=== PATIENT | female | born 1985 | race Caucasian/White ===

== ENCOUNTER 2017-09-13 10:38 | Emergency (ER) | payer OTHER ==
[2017-09-13 11:31] VITALS: BMI 24.1
[2017-09-13 11:40] VITALS: RESP 18; TEMP 98.2
--- NOTE | 2017-09-13 12:17 | ED PDOC ---
Arrival/HPI - General Chief Complaint: Abnormal Skin Integrity Time Seen by Provider: 09/13/17 11:32 Historian: Patient - History of Present Illness Narrative History of Present Illness (Text): 09/13/17 12:14 Dustin Flores is a 31 year old female, 5 months , who presents to the emergency department complaining of worsening pain to her right axilla for a few days. Patient indicates that pain worsens on palpation. Patient denies any fever, chills, chest pain, shortness of breath, nausea, vomiting, diarrhea, urinary symptoms, back pain, neck pain, headache, dizziness, trauma/injury, suicidal/homicidal ideation or any other complaints. Time/Duration: < week Symptom Onset: Gradual Symptom Course: Worsening Activities at Onset: Rest Context: Home Past Medical History - Provider Review Nursing Documentation Reviewed: Yes - Infectious Disease Hx of Infectious Diseases: None - Psychiatric Hx Substance Use: No - Anesthesia Hx Anesthesia: No Family/Social History - Physician Review Nursing Documentation Reviewed: Yes Family/Social History: No Known Family HX Smoking Status: Never Smoked Hx Alcohol Use: No Hx Substance Use: No Allergies/Home Meds Allergies/Adverse Reactions: Allergies No Known Allergies Allergy (Verified 09/13/17 11:31) Home Medications: Home Meds Medication Instructions Recorded Confirmed No Known Home Med 09/13/17 09/13/17 Review of Systems - Physician Review All systems were reviewed & negative as marked: Yes - Review of Systems Constitutional: absent: Fevers, Night Sweats Eyes: absent: Vision Changes ENT: absent: Hearing Changes Respiratory: absent: SOB, Cough Cardiovascular: absent: Chest Pain Gastrointestinal: absent: Abdominal Pain Genitourinary Female: absent: Dysuria, Frequency Musculoskeletal: Other (Worsening pain to right axilla) Skin: absent: Rash, Pruritis Neurological: absent: Headache Endocrine: absent: Diaphoresis Hemo/Lymphatic: absent: Adenopathy Psychiatric: absent: Anxiety Physical Exam Vital Signs Reviewed: Yes Vital Signs Temp Pulse Resp BP Pulse Ox 09/13/17 11:39 98.2 F 94 H 18 95/37 L 100 Temperature: Afebrile Blood Pressure: Hypotensive Pulse: Tachycardic Respiratory Rate: Normal Appearance: Positive for: Well-Appearing, Non-Toxic, Comfortable Pain Distress: None Mental Status: Positive for: Alert and Oriented X 3 - Systems Exam Head: Present: Atraumatic, Normocephalic Pupils: Present: PERRL Extroacular Muscles: Present: EOMI Conjunctiva: Present: Normal Mouth: Present: Moist Mucous Membranes Neck: Present: Normal Range of Motion Respiratory/Chest: Present: Clear to Auscultation, Good Air Exchange. No: Respiratory Distress, Accessory Muscle Use Cardiovascular: Present: Regular Rate and Rhythm, Normal S1, S2. No: Murmurs Abdomen: No: Tenderness, Distention, Peritoneal Signs Back: Present: Normal Inspection Upper Extremity: Present: Normal Inspection. No: Cyanosis, Edema Lower Extremity: Present: Normal Inspection. No: Edema Neurological: Present: GCS=15, CN II-XII Intact, Speech Normal Skin: Present: Abscess (1.5 cm to right axilla) Psychiatric: Present: Alert, Oriented x 3, Normal Insight, Normal Concentration Medical Decision Making ED Course and Treatment: 09/13/17 12:18 Impression: 31 year old female complaining of worsening pain to right axilla for a few days. Plan: -- Cleocin -- Reassess and disposition Progress Notes: - Lab Interpretations Lab Results: Lab Results 09/13/17 12:15: POC Glucose (mg/dL) 68 - Medication Orders Current Medication Orders: Discontinued Medications Clindamycin HCl (Cleocin) 300 mg PO STAT STA PRN Reason: Protocol Stop: 09/13/17 12:11 Last Admin: 09/13/17 13:40 Dose: 300 mg - Scribe Statement The provider has reviewed the documentation as recorded by the Bonilla Tinsley Provider Scribe Attestation: All medical record entries made by the Cribnolberto were at my direction and personally dictated by me. I have reviewed the chart and agree that the record accurately reflects my personal performance of the history, physical exam, medical decision making, and the department course for this patient. I have also personally directed, reviewed, and agree with the discharge instructions and disposition. Disposition/Present on Arrival - Present on Arrival Any Indicators Present on Arrival: No History of DVT/PE: No History of Uncontrolled Diabetes: No Urinary Catheter: No History of Decub. Ulcer: No History Surgical Site Infection Following: None - Disposition Have Diagnosis and Disposition been Completed?: Yes Diagnosis: Abscess of right axilla, Disposition: HOME/ ROUTINE Disposition Time: 14:08 Patient Plan: Discharge Condition: GOOD Discharge Instructions (ExitCare): Boil, Skin Abscess, Abscess Incision and Drainage Additional Instructions: See the Surgeon on Saturday. [PATRICIA] Return to us if worse. Warm Compresses, No Shaving, Cleocin 4 x day. Referrals: Chao Stacy, [Primary Care Provider] - Follow up with primary Ac Coyne MD [Medical Doctor] - Follow up with primary Forms: [facility] (Latvian), SCHOOL NOTE, WORK NOTE
[2017-09-13 14:51] VITALS: BP 98/70; PULSE 76; O2SAT 98
== END 2017-09-13 14:50 | disposition home or self-care (01) ==
LOC: ED 10:38
DX: O26.892 Other specified pregnancy related conditions, second trimester (principal); Z3A.20 20 weeks gestation of pregnancy; L02.411 Cutaneous abscess of right axilla